=== PATIENT | female | born 2000 | race Caucasian/White ===

== ENCOUNTER 2021-07-18 10:40 | Day surgery (SDC) | payer BC, OTHER ==
[~2021-07-18] VITALS: Ht 167.6 cm; Wt 90.4 kg
[2021-07-18 11:42] VITALS: BP 126/71; PULSE 78; TEMP 97.6
[2021-07-18] MEDS ORDERED: WELLBUTRIN 75MG75 MG PO (11:48)
[2021-07-18] MEDS ORDERED: NEXPLANON68 MG ID (11:49)
[2021-07-18] MEDS ORDERED: NORCO 325 MG-51 TAB PO (13:00)
[2021-07-18] MEDS ORDERED: MOTRIN 600600 MG/TAB PO (13:00)
[2021-07-18] MEDS ORDERED: ZOFRAN ODT4 MG PO (13:01)
[2021-07-18 15:00] VITALS: BP 119/47; PULSE 95; TEMP 98
--- NOTE | 2021-07-18 15:00 | NUR ---
Pt returns to [facility] from PACU, alert and oriented x3, VSS, denies needs at this time, minimal pain and no nausea, has tolerated ice chips well. Given water to drink, mom at bedside. Call light in reach.
[2021-07-18 15:15] VITALS: BP 120/73; PULSE 92
--- NOTE | 2021-07-18 15:15 | NUR ---
Pt doing well, given vanilla pudding. Call light in reach.
[2021-07-18 15:30] VITALS: BP 123/70; PULSE 84
--- NOTE | 2021-07-18 15:40 | NUR ---
Pt reports pain is increasing but is not that bad 05/02. Given pain pill per orders, pt reports mild nausea at this time, Zofran given per orders. VSS. Given saltine crackers per request. VSS.
[2021-07-18 15:45] VITALS: BP 121/68; PULSE 70
[2021-07-18 16:00] VITALS: BP 121/72; PULSE 76
--- NOTE | 2021-07-18 16:10 | NUR ---
Pt reports pain manageable and wanting to get up to the bathroom, voids without difficulty. Discharge instructions provided to pt and her mom, understanding verbalized. IV discontinued to left hand, pt taken out via wheelchair and left in care of her mom at 1630.
== END 2021-07-18 16:30 | disposition home or self-care (01) ==
LOC: SDCO 10:40
DX: K80.10 Calculus of gallbladder with chronic cholecystitis without obstruction (principal); J45.909 Unspecified asthma, uncomplicated; K21.9 Gastro-esophageal reflux disease without esophagitis; I87.2 Venous insufficiency (chronic) (peripheral); F32.9 Major depressive disorder, single episode, unspecified; F41.9 Anxiety disorder, unspecified; Z79.899 Other long term (current) drug therapy; Z80.3 Family history of malignant neoplasm of breast; Z82.49 Family history of ischemic heart disease and other diseases of the circulatory system
CPT/HCPCS: J0690; J0694; J1100; J2250; J2405; J2704; J3010; J7120